=== PATIENT | male | born 1965 | race Caucasian/White ===

== ENCOUNTER 2022-07-16 20:30 | Observation (INO) ==
[2022-07-16 23:16] LABS: Basophils % 0.6 %; Eosinophils # 0.1 K/mcL (0.0-0.6); Eosinophils % 1.9 %; Hemoglobin 6.8 g/dL (12.9-16.9); Immature Granulocytes % 0.2 % (0-4); Lymphocytes # 0.4 K/mcL (0.6-4.6); Lymphocytes % 7.6 %; Mean Corpuscular HGB Conc 30.9 g/dL (31.6-35.5); Mean Corpuscular Volume 96.9 fL (83.0-100.0); Mean Platelet Volume 9.5 fL (9.4-12.4); Monocytes # 0.6 K/mcL (0.0-1.3); Monocytes % 13.1 %; Neutrophils # 3.6 K/mcL (1.6-8.9); Platelet Count 164 K/mcL (140-400); Red Blood Count 2.27 M/mcL (4.19-5.50); Segmented Neutrophils % 76.6 %; White Blood Count 4.7 K/mcL (4.3-11.1)
[2022-07-16 23:24] LABS: INR 1.3; Prothrombin Time 14.6 Seconds (9.4-12.1)
[2022-07-16 23:27] LABS: Activated Partial Thrombo Time 34.8 Seconds (26.0-36.0)
[2022-07-16 23:37] LABS: Calcium 9.1 mg/dL (8.6-10.3); Potassium 4.3 mEq/L (3.5-5.1)
[2022-07-16] MEDS ORDERED: *HR* Heparin 5,000 UNIT/ML VIAL IVP ONE (23:40)
[2022-07-16] MEDS ORDERED: *HR* Heparin 5,000 UNIT/ML VIAL IVP PRN ×2 (23:40)
[2022-07-16 23:41] LABS: Troponin I 0.41 ng/mL (< 0.04)
[2022-07-16] MEDS ORDERED: Heparin 25,000UNIT/250ML 1/2NS 25,000 UNIT/250 ML IV.SOLN IVC SCH (23:45)
[2022-07-16 23:59] LABS: Thyroid Stimulating Hormone 4.159 mcIU/mL (0.340-5.600)
[2022-07-17] MEDS ORDERED: *HR* HYDROmorphone (PF) 1 MG/ML SYRINGE IVP ONE (00:22)
[2022-07-17] MEDS ORDERED: Ondansetron 4 MG/2 ML VIAL IVP PRN (00:46)
[2022-07-17] MEDS ORDERED: Naloxone 0.4 MG/ML INJ IVP PRN (00:46)
[2022-07-17] MEDS ORDERED: Melatonin 3 MG TABLET PO PRN (00:46)
[2022-07-17] MEDS ORDERED: Acetaminophen 325 MG TABLET PO PRN (00:46)
[2022-07-17 01:16] LABS: Magnesium 1.9 mg/dL (1.6-2.6); Phosphorous 3.3 mg/dL (2.7-4.5)
[2022-07-17] MEDS ORDERED: *HR* FentaNYL PATCH 25 MCG PATCH TD SCH (02:00)
[2022-07-17] MEDS: *HR* Heparin 5,000 UNIT/ML VIAL SQ SCH ×3 (06:53→20:19)
[2022-07-17] MEDS ORDERED: amLODIPine 5 MG TABLET PO SCH ×2 (09:00)
[2022-07-17] MEDS ORDERED: calcitrioL 0.25 MCG CAPSULE PO SCH (09:00)
[2022-07-17] MEDS: Mycophenolate Sodium (DR) 180 MG TABLET.DR PO SCH ×2 (09:13→20:21)
[2022-07-17] MEDS: Metoprolol XL (24 HR) Succ 25 MG TAB.ER.24H PO SCH (09:14)
[2022-07-17 10:24] LABS: Basophils % 0.5 %; Eosinophils # 0.1 K/mcL (0.0-0.6); Eosinophils % 2.1 %; Hematocrit 20.8 % (37.5-50.1); Hemoglobin 6.4 g/dL (12.9-16.9); Immature Granulocytes % 0.2 % (0-4); Lymphocytes # 0.5 K/mcL (0.6-4.6); Lymphocytes % 11.2 %; Mean Corpuscular HGB Conc 30.8 g/dL (31.6-35.5); Mean Corpuscular Hemoglobin 29.5 pg (28.0-33.3); Mean Corpuscular Volume 95.9 fL (83.0-100.0); Mean Platelet Volume 9.5 fL (9.4-12.4); Monocytes # 0.6 K/mcL (0.0-1.3); Monocytes % 13.6 %; Neutrophils # 3.1 K/mcL (1.6-8.9); Platelet Count 160 K/mcL (140-400); Red Blood Count 2.17 M/mcL (4.19-5.50); Red Cell Distribution Width 14.4 % (11.5-14.5); Segmented Neutrophils % 72.4 %; White Blood Count 4.3 K/mcL (4.3-11.1)
[2022-07-17 10:31] LABS: INR 1.3; Prothrombin Time 14.6 Seconds (9.4-12.1)
[2022-07-17 10:51] LABS: % Iron Saturation 21 % (20-55); Iron 45 mcg/dL (65-175); Transferrin 154 mg/dL (203-362)
[2022-07-17 10:54] LABS: Calcium 9.1 mg/dL (8.6-10.3); Chol/HDL Ratio 4.8 (0-4.9); Magnesium 1.8 mg/dL (1.6-2.6); Phosphorous 3.7 mg/dL (2.7-4.5); Potassium 4.7 mEq/L (3.5-5.1); Troponin I 0.41 ng/mL (< 0.04)
[2022-07-17] MEDS: *HR* OxyCODONE/APAP 10/325 TABLET PO PRN ×2 (11:04→20:21)
[2022-07-17 11:07] LABS: Ferritin 738 ng/mL (20-250)
[2022-07-17 11:14] LABS: Folate 13.8 ng/mL (3.0-16.0)
[2022-07-17 11:30] LABS: Parathyroid Hormone Intact 134.6 pg/ml (10.0-65.0)
[2022-07-17] MEDS ORDERED: [UNRECOGNIZED DRUG - OTHER] PO SCH (21:45)
[2022-07-17] MEDS ORDERED: CANNABIDIOL PO SCH (21:45)
[2022-07-18] MEDS: amLODIPine 5 MG TABLET PO SCH ×2 (02:45→12:07)
[2022-07-18 03:00] VITALS: O2SAT 96
[2022-07-18 03:20] LABS: Mean Corpuscular HGB Conc 30.4 g/dL (31.6-35.5); Mean Corpuscular Hemoglobin 29.4 pg (28.0-33.3); Mean Corpuscular Volume 96.6 fL (83.0-100.0); Mean Platelet Volume 9.7 fL (9.4-12.4); Platelet Count 160 K/mcL (140-400); Red Blood Count 2.38 M/mcL (4.19-5.50); Red Cell Distribution Width 14.2 % (11.5-14.5); White Blood Count 3.8 K/mcL (4.3-11.1)
[2022-07-18 03:39] LABS: Potassium 4.9 mEq/L (3.5-5.1)
[2022-07-18] MEDS: *HR* Heparin 5,000 UNIT/ML VIAL SQ SCH ×2 (06:07→13:48)
[2022-07-18 07:07] VITALS: PULSE 78
[2022-07-18] MEDS ORDERED: 0.9 % Sodium Chloride 250 ML IVC PRN (07:47)
[2022-07-18] MEDS ORDERED: 0.9 % Sodium Chloride 2,000 ML PRIME SCH (08:00)
[2022-07-18] MEDS ORDERED: Doxycycline 100 MG CAPSULE PO SCH (09:00)
[2022-07-18] MEDS ORDERED: Metoprolol XL (24 HR) Succ 25 MG TAB.ER.24H PO STA (11:26)
[2022-07-18 12:03] VITALS: BP 169/61
[2022-07-18] MEDS: Mycophenolate Sodium (DR) 180 MG TABLET.DR PO SCH (12:06)
[2022-07-18 12:07] VITALS: TEMP 99.5
[2022-07-18] MEDS: *HR* OxyCODONE/APAP 10/325 TABLET PO PRN (12:07)
[2022-07-18] MEDS: Metoprolol XL (24 HR) Succ 25 MG TAB.ER.24H PO SCH (13:49)
[2022-07-18] MEDS ORDERED: CANNABIDIOL PO SCH (21:00)
[2022-07-18] MEDS ORDERED: [UNRECOGNIZED DRUG - OTHER] PO SCH (21:00)
[2022-07-19] MEDS ORDERED: Metoprolol XL (24 HR) Succ 50 MG TAB.ER.24H PO SCH (09:00)
== END 2022-07-18 15:54 | disposition home or self-care (01) ==
LOC: 3NENU 20:30 → EMEROOARM 20:30 → SUATTDRO 07-17 00:38 → 3NENU 07-17 01:54
PROVIDERS: ADMIT Internal Medicine; ATTEND Internal Medicine